=== PATIENT | female | born 1945 | race Caucasian/White ===

== ENCOUNTER 2023-12-08 13:08 | Emergency (ER) | payer MEDICARE, OTHER, MEDICAID ==
[~2023-12-08] VITALS: Ht 157.5 cm; Wt 54.5 kg
[2023-12-08 14:35] LABS: BASOPHILS % (AUTO) 0.3 % (0-1); EOSINOPHILS % (AUTO) 0.3 % (0-6); HEMATOCRIT 41.5 % (35.0-45.0); HEMOGLOBIN 13.5 g/dl (12.0-16.0); LYMPHOCYTES # (AUTO) 1.6 X10'3 (1.1-4.8); LYMPHOCYTES % (AUTO) 32.3 % (21-51); MEAN CORPUSCULAR HEMOGLOBIN 31.8 PG (27.0-31.0); MEAN CORPUSCULAR HGB CONC 32.4 g/dL (33.0-36.5); MEAN CORPUSCULAR VOLUME 98.2 FL (78-98); MEAN PLATELET VOLUME 8.6 FL (7.4-10.4); MONOCYTES # (AUTO) 0.3 X10'3 (0-0.9); MONOCYTES % (AUTO) 5.7 % (2-12); NEUTROPHILS # (AUTO) 3.1 X10'3 (1.8-7.7); NEUTROPHILS % (AUTO) 61.4 % (42-75); PLATELET COUNT 189 X10'3 (140-440); RED BLOOD COUNT 4.23 X10'6 (4.20-5.60); RED CELL DISTRIBUTION WIDTH 15.2 % (11.5-14.5); WHITE BLOOD COUNT 5.1 X10'3 (4.5-11.0)
[2023-12-08 15:00] LABS: ALANINE AMINOTRANSFERASE 22 U/L (12-78); ALBUMIN 3.1 G/DL (3.4-5.0); ALBUMIN/GLOBULIN RATIO 0.8 (1.1-1.5); ALKALINE PHOSPHATASE 64 IU/L (46-116); ANION GAP 5 (8-16); ASPARTATE AMINO TRANSFERASE 18 U/L (10-37); BILIRUBIN,TOTAL 0.5 MG/DL (0.1-1.0); BLOOD UREA NITROGEN 10 MG/DL (7-18); BUN/CREATININE RATIO 16.9 (10.0-20.0); CALCIUM 9.3 MG/DL (8.5-10.1); CHLORIDE 107 MMOL/L (99-107); CREATININE 0.59 MG/DL (0.40-0.90); GLUCOSE 56 MG/DL (70-104); POTASSIUM 4.1 MMOL/L (3.5-5.1); SODIUM 143 MMOL/L (135-145); TOTAL PROTEIN 6.9 G/DL (6.4-8.2); eCRCL 63 ML/MIN; eGFR > 90 ML/MIN
[2023-12-08] MEDS: LORazepam 1 MG tablet PO ONE (15:02)
[2023-12-08] MEDS: LORazepam 2 mg/ml vial IM ONE (15:15)
[2023-12-08 16:41] LABS: BILIRUBIN,URINE NEGATIVE (Neg); CLARITY,URINE CLEAR (Clear); COLOR,URINE YELLOW (Yellow); GLUCOSE, URINE NEGATIVE (Neg); KETONES,URINE NEGATIVE (Neg); LEUKOCYTE ESTERASE ,URINE SMALL (Neg); NITRITES, URINE NEGATIVE (Neg); OCCULT BLOOD,URINE NEGATIVE (Neg); PROTEIN,URINE NEGATIVE (Neg); UROBILINOGEN,URINE 0.2 E.U/dL (0.2-1.0)
[2023-12-08 16:56] LABS: UA COLLECTION TYPE OTHER
[2023-12-08 16:58] LABS: BACTERIA,URINE NONE SEEN /HPF (Neg); MUCUS STRANDS NONE SEEN /LPF (Neg); RBC,URINE 0 /HPF (0-2); SQUAMOUS EPITHELIAL CELL,UR NONE SEEN /LPF (FEW); YEAST MODERATE /HPF (NEGATIVE)
[2023-12-08] MEDS ORDERED: CEPH500C3 PO (17:52)
[2023-12-08] MEDS: cephalexin 250mg capsule PO ONE (18:05)
[2023-12-08 21:00] VITALS: BP 116/88; PULSE 82; RESP 14; TEMP 98.2; O2SAT 97
[2023-12-09] MEDS ORDERED: GLIP2.5T3 PO (23:36)
[2023-12-09] MEDS ORDERED: ONDA-245 PO (23:36)
[2023-12-09] MEDS ORDERED: MEMA28CA16 PO (23:36)
[2023-12-09] MEDS ORDERED: RIVA1PAT13 TOP (23:36)
[2023-12-09] MEDS ORDERED: PRE5T PO (23:36)
[2023-12-09] MEDS ORDERED: INSU100I8 SQ (23:36)
[2023-12-09] MEDS ORDERED: AMYL1CAP57 PO (23:36)
[2023-12-09] MEDS ORDERED: INSU100V9 SQ (23:36)
== END 2023-12-08 21:09 | disposition home or self-care (01) ==
LOC: ER 13:09
DX: F03.90 Unspecified dementia, unspecified severity, without behavioral disturbance, psychotic disturbance, mood disturbance, and anxiety (principal); N39.0 Urinary tract infection, site not specified; Z91.041 Radiographic dye allergy status; Z88.1 Allergy status to other antibiotic agents; Z87.891 Personal history of nicotine dependence
CPT/HCPCS: 99284; C1758; 36415; 71045; 80053; 81001; 83605; 85025; 87040; 87088; A4353

== ENCOUNTER 2023-12-20 14:13 | Emergency (ER) | payer MEDICARE, OTHER, MEDICAID ==
[~2023-12-20] VITALS: Ht 152.4 cm; Wt 48.6 kg
[~2023-12-20 14:13] MED LIST: AMYL1CAP57 PO; AZAT50TA18 PO; EMPA10TA PO; MEMA28CA16 PO; MIDO2.5T14 PO; OMEP40CA21 PO; ONDA-245 PO; PRE5T PO; RIVA1PAT13 TOP; SUCR1TAB PO; TACR1CAP24 PO
[2023-12-20] MEDS: LORazepam 2 mg/ml vial IM ONE (15:13)
[2023-12-20] MEDS: diphenhydrAMINE 50 mg/ml inj IM ONE (15:14)
[2023-12-20] MEDS: insulin regular, human 10 units/0.1 ml syringe SQ ONE (15:24)
[2023-12-20 17:37] VITALS: BP 106/59; PULSE 86; RESP 14; TEMP 98.7; O2SAT 98
== END 2023-12-20 17:44 ==
LOC: ER 14:14
DX: S52.91XA Unspecified fracture of right forearm, initial encounter for closed fracture (principal); F03.90 Unspecified dementia, unspecified severity, without behavioral disturbance, psychotic disturbance, mood disturbance, and anxiety; E10.9 Type 1 diabetes mellitus without complications; Z88.1 Allergy status to other antibiotic agents; Z79.899 Other long term (current) drug therapy; W18.39XA Other fall on same level, initial encounter; Y93.89 Activity, other specified; Y92.89 Other specified places as the place of occurrence of the external cause; Y99.8 Other external cause status
CPT/HCPCS: 29125; 82948; 96372; 99284; J1200; J1815; J2060; L3908